=== PATIENT | male | born 1975 | race Caucasian/White ===

== ENCOUNTER → 2021-01-17 | Emergency (ER) | payer SELFPAY ==
[~2021-01-17] VITALS: Ht 177.8 cm; Wt 100.0 kg
[~2021-01-17] MED LIST: ACETAMINOPHEN500 M1 PO; ALBUTEROL SULF8.5 GM INH; CYCLOBENZAPRINE10 MG PO; FLAGYL500 MG PO; IBUPROFEN800 MG PO; LEVAQUIN750 MG PO
[2021-01-17 08:56] VITALS: Ht 177.8 cm; Wt 100.0 kg
[2021-01-17 09:11] LABS: BASOPHILS 1.1 % (0-2); EOSINOPHILS 3.5 % (0-7); HEMATOCRIT 46.9 % (42.0-54.0); HEMOGLOBIN 16.3 g/dL (13.5-17.5); IMMATURE GRANULOCYTES 0.3 % (0-5); LYMPHOCYTE ABS# 2.38 10x3/uL (1.32-3.57); LYMPHOCYTES 36.1 % (15-50); MCH 30.5 pg (26.0-34.0); MCHC 34.8 g/dL (31.0-37.0); MCV 87.7 fL (80.0-100.0); MEAN PLATELET VOLUME 8.9 fL (7.4-10.4); MONOCYTES 6.7 % (2-11); NEUTROPHIL ABS# 3.45 10x3/uL (1.78-5.38); NEUTROPHILS 52.3 % (40-80); PLATELET COUNT 220 10x3/uL (130-400); RBC 5.35 10x6/uL (4.20-6.10); RDW 13.1 % (11.5-14.5); WBC 6.6 10x3/uL (4.8-10.8)
[2021-01-17 09:19] LABS: CALC OSMOLALITY 272 mosm/kg (275-300); CALCIUM 8.8 mg/dL (8.5-10.1); CARBON DIOXIDE 29.2 mmol/L (21.0-32.0); CHLORIDE - SERUM 103 mmol/L (98-107); CREATININE - SERUM 1.1 mg/dL (0.6-1.3); GLUCOSE 82 mg/dL (74-106); POTASSIUM - SERUM 4.4 mmol/L (3.5-5.1); SODIUM 137 mmol/L (136-145); UREA NITROGEN 13 mg/dL (7-18); eGFR NON AFRICAN AMERICAN 77 mL/min (90-120)
[2021-01-17 09:28] LABS: ALBUMIN 3.9 g/dL (3.4-5.0); ALKALINE PHOSPHATASE 105 U/L (30-120); ALT (SGPT) 44 U/L (10-68); AMYLASE - SERUM 47 U/L (25-115); BILIRUBIN - TOTAL 0.46 mg/dL (0.2-1.3); LIPASE 63 U/L (73-393); PROTEIN - SERUM 7.9 g/dL (6.4-8.2)
[2021-01-17 09:29] LABS: TROPONIN-I < 0.017 ng/mL (0.000-0.060)
[2021-01-17 11:23] LABS: BILIRUBIN NEGATIVE (NEGATIVE); KETONE NEGATIVE (NEGATIVE); NITRITE NEGATIVE (NEGATIVE); UROBILINOGEN NORMAL mg/dL (< 2)
[2021-01-17 11:26] LABS: BACTERIA NONE SEEN HPF (NONE SEEN); SQUAMOUS EPITHELIAL RARE HPF (0-4); WHITE CELLS - URINE RARE HPF (0-1)
== END | disposition home or self-care (01) ==
LOC: D.ER 08:41
PROVIDERS: Family Medicine
DX: K57.92 Diverticulitis of intestine, part unspecified, without perforation or abscess without bleeding (principal); R10.9 Unspecified abdominal pain; K40.90 Unilateral inguinal hernia, without obstruction or gangrene, not specified as recurrent; J45.909 Unspecified asthma, uncomplicated; Z72.0 Tobacco use

== ENCOUNTER 2021-01-22 10:19 | Inpatient (IN) | payer MEDICAID ==
[~2021-01-22] VITALS: Ht 177.8 cm; Wt 100.0 kg
[2021-01-22 11:36] LABS: BASOPHILS 0.4 % (0-2); EOSINOPHILS 1.6 % (0-7); IMMATURE GRANULOCYTES 0.1 % (0-5); LYMPHOCYTE ABS# 2.32 10x3/uL (1.32-3.57); LYMPHOCYTES 34.6 % (15-50); MCH 30.7 pg (26.0-34.0); MCHC 34.8 g/dL (31.0-37.0); MCV 88.1 fL (80.0-100.0); MEAN PLATELET VOLUME 9.4 fL (7.4-10.4); MONOCYTES 7.5 % (2-11); NEUTROPHIL ABS# 3.73 10x3/uL (1.78-5.38); NEUTROPHILS 55.8 % (40-80); PLATELET COUNT 195 10x3/uL (130-400); RBC 5.22 10x6/uL (4.20-6.10); RDW 13.1 % (11.5-14.5); WBC 6.7 10x3/uL (4.8-10.8)
[2021-01-22 11:47] LABS: CALC OSMOLALITY 270 mosm/kg (275-300); CALCIUM 9.6 mg/dL (8.5-10.1); CARBON DIOXIDE 28.1 mmol/L (21.0-32.0); CHLORIDE - SERUM 100 mmol/L (98-107); GLUCOSE 104 mg/dL (74-106); POTASSIUM - SERUM 4.4 mmol/L (3.5-5.1); SODIUM 136 mmol/L (136-145); UREA NITROGEN 11 mg/dL (7-18); eGFR NON AFRICAN AMERICAN 86 mL/min (90-120)
[2021-01-22 11:57] LABS: ALBUMIN 4.2 g/dL (3.4-5.0); ALKALINE PHOSPHATASE 93 U/L (30-120); ALT (SGPT) 69 U/L (10-68); AMYLASE - SERUM 42 U/L (25-115); BILIRUBIN - TOTAL 0.53 mg/dL (0.2-1.3); LIPASE 64 U/L (73-393); PROTEIN - SERUM 7.8 g/dL (6.4-8.2); TROPONIN-I < 0.017 ng/mL (0.000-0.060)
[2021-01-22 12:30] VITALS: BP 134/89
[2021-01-22 14:45] VITALS: BP 143/88
[2021-01-22 16:01] VITALS: BP 146/98; Ht 177.8 cm; Wt 100.0 kg
--- NOTE | 2021-01-22 16:15 | NUR ---
PT ARRIVED VIA WHEELCHIAR TO ROOM. ALERT AND ORIENTED, UP WITHOUT ASSISTANCE. DENIES DESIRE FOR SCDS. EXPLAINED PURPOSE AND RISK OF REFUSING SCDS, PT STILL DECLINED. 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 NO CMPLAINTS OR CONCERNS AT THIS TIME. CL IN REACH, SRX2.
[2021-01-22 20:00] VITALS: BP 123/77
--- NOTE | 2021-01-22 22:31 | NUR ---
PATIENT AAOX4, UP WALKING AROUND, RESP EVEN AND NON LABORED, NO S/S OF DISTRESS, MEDICATIONS ADMINSITERED AND IV MEDS INFUSING WITH NO COMPLICATIONS, NO FURTHER NEEDS AT THIS TIME, MANGO CARROLLP
[2021-01-22 22:51] LABS: BILIRUBIN NEGATIVE (NEGATIVE); KETONE NEGATIVE (NEGATIVE); NITRITE NEGATIVE (NEGATIVE); UROBILINOGEN NORMAL mg/dL (< 2)
[2021-01-22 22:55] LABS: BACTERIA FEW HPF (NONE SEEN); WHITE CELLS - URINE 0-5 HPF (0-1)
[2021-01-23] VITALS: BP 115/71
--- NOTE | 2021-01-23 03:49 | NUR ---
I have reviewed this patient and I concur with the Shift Assessment completed by the Licensed Practical Nurse today this shift.
[2021-01-23 04:00] VITALS: BP 130/86
[2021-01-23 04:48] LABS: BASOPHILS 0.9 % (0-2); EOSINOPHILS 3.1 % (0-7); HEMATOCRIT 41.7 % (42.0-54.0); HEMOGLOBIN 14.4 g/dL (13.5-17.5); IMMATURE GRANULOCYTES 0.2 % (0-5); LYMPHOCYTE ABS# 2.32 10x3/uL (1.32-3.57); LYMPHOCYTES 36.2 % (15-50); MCH 30.3 pg (26.0-34.0); MCHC 34.5 g/dL (31.0-37.0); MCV 87.8 fL (80.0-100.0); MEAN PLATELET VOLUME 9.2 fL (7.4-10.4); MONOCYTES 8.6 % (2-11); NEUTROPHIL ABS# 3.27 10x3/uL (1.78-5.38); PLATELET COUNT 209 10x3/uL (130-400); RBC 4.75 10x6/uL (4.20-6.10); WBC 6.4 10x3/uL (4.8-10.8)
[2021-01-23 05:20] LABS: ALBUMIN 3.2 g/dL (3.4-5.0); ANION GAP 11.1 mmol/L (8-16); BILIRUBIN - TOTAL 0.28 mg/dL (0.2-1.3); CALCIUM 8.2 mg/dL (8.5-10.1); CARBON DIOXIDE 25.3 mmol/L (21.0-32.0); CREATININE - SERUM 1.3 mg/dL (0.6-1.3); POTASSIUM - SERUM 4.4 mmol/L (3.5-5.1); PROTEIN - SERUM 6.3 g/dL (6.4-8.2)
--- NOTE | 2021-01-23 07:15 | NUR ---
RECEIVE SHIFT REPORT. SITTING UP IN BED. DENIES ANY NEEDS AT THIS TIME. REFUSE SCD'S. GETTING LOVENOX, STATES HE IS GETTING UP IN ROOM AND WALKING SO HE DOES NOT NEED SCD'S. CONTINUE POC AND SAFETY PRECAUTIONS.
[2021-01-23 07:59] VITALS: BP 143/93
[2021-01-23 11:00] VITALS: BP 130/90
[2021-01-23] MEDS ORDERED: FLAGYL500 MG PO ×2 (13:50→13:53)
[2021-01-23] MEDS ORDERED: LEVAQUIN750 MG PO ×2 (13:50→13:53)
--- NOTE | 2021-01-23 15:48 | NUR ---
NURSE DOING DC ON PATIENT
--- NOTE | 2021-01-23 16:19 | NUR ---
IV D/C, TIP INTACT. DISCHARGE INSTRUCTIONS GIVEN VERBALLY AND HANDOUTS PROVIDED. TAKEN DOWN TO ED ENTRANCE TO SPOUSE VIA WHEELCHAIR. REMAINS FREE FROM INJURY.
== END 2021-01-23 16:00 | disposition home or self-care (01) | DRG 392 ==
LOC: D.ER 10:19 → D.M2 14:04
PROVIDERS: Family Medicine; ADMIT Family Medicine Adult Medicine; ATTEND Family Medicine Adult Medicine
DX: K57.92 Diverticulitis of intestine, part unspecified, without perforation or abscess without bleeding (principal); K40.20 Bilateral inguinal hernia, without obstruction or gangrene, not specified as recurrent; R74.01 Elevation of levels of liver transaminase levels

== ENCOUNTER 2021-02-28 06:40 | Day surgery (SDC) | payer MEDICAID ==
[~2021-02-28] VITALS: Ht 177.8 cm; Wt 97.1 kg
[2021-02-28 07:04] LABS: BASOPHILS 0.8 % (0-2); EOSINOPHILS 2.9 % (0-7); HEMATOCRIT 46.7 % (42.0-54.0); IMMATURE GRANULOCYTES 0.2 % (0-5); LYMPHOCYTE ABS# 1.98 10x3/uL (1.32-3.57); LYMPHOCYTES 41.5 % (15-50); MCH 30.1 pg (26.0-34.0); MCHC 34.3 g/dL (31.0-37.0); MCV 87.9 fL (80.0-100.0); MEAN PLATELET VOLUME 9.2 fL (7.4-10.4); MONOCYTES 8.6 % (2-11); NEUTROPHIL ABS# 2.19 10x3/uL (1.78-5.38); PLATELET COUNT 196 10x3/uL (130-400); RBC 5.31 10x6/uL (4.20-6.10); RDW 12.9 % (11.5-14.5); WBC 4.8 10x3/uL (4.8-10.8)
[2021-02-28 08:11] VITALS: BP 136/90; Ht 177.8 cm; Wt 97.1 kg
[2021-02-28] MEDS ORDERED: BACTRIM DS TAB1 EAC1 PO (11:31)
[2021-02-28] MEDS ORDERED: HYDROCODON-ACE1 EAC7 PO (11:33)
--- NOTE | 2021-02-28 11:45 | NUR ---
PT STATES NO NARCOTICS. DOESNT WATNT TO BE TOUCHED.
--- NOTE | 2021-02-28 17:35 | NUR ---
1255 MEDICATED FOR PAIN. 1240 VOIDED 1250 IV REMOVED AND INSTRUCTIONS GIVEN.
== END 2021-02-28 13:00 | disposition home or self-care (01) ==
LOC: D.OPS 06:40
PROVIDERS: Anesthesiology; ATTEND Surgery
DX: K40.90 Unilateral inguinal hernia, without obstruction or gangrene, not specified as recurrent (principal); J45.909 Unspecified asthma, uncomplicated; K57.92 Diverticulitis of intestine, part unspecified, without perforation or abscess without bleeding

== ENCOUNTER 2021-03-22 07:57 | Emergency (ER) | payer MEDICAID ==
[~2021-03-22] VITALS: Ht 177.8 cm; Wt 95.5 kg
[~2021-03-22 07:57] MED LIST changes: +BACTRIM DS TAB1 EAC1 PO; +HYDROCODON-ACE1 EAC7 PO
[2021-03-22 08:00] VITALS: BP 145/81; Ht 177.8 cm; Wt 95.5 kg
[2021-03-22] MEDS ORDERED: STERAPRED 5MG 125 MG PO (08:38)
[2021-03-22] MEDS ORDERED: COMBIVENT RESPIM4 GM INH (08:38)
[2021-03-22] MEDS ORDERED: LEVOFLOXACIN500 MG PO (08:38)
[2021-03-22] MEDS ORDERED: PROAIR HFA8.5 G1 INH (11:04)
== END 2021-03-22 09:15 | disposition home or self-care (01) ==
LOC: D.ER 07:57
DX: J20.9 Acute bronchitis, unspecified (principal); J45.909 Unspecified asthma, uncomplicated